=== PATIENT | female | born 1965 | race Caucasian/White ===

== ENCOUNTER 2021-09-01 10:07 | Outpatient (CLI) | payer BC | END 2021-09-01 10:08 | disposition home or self-care (01) | LOC: BICMRI 10:07 | PROVIDERS: ATTEND Nurse Practitioner Family | DX: R26.81 Unsteadiness on feet (principal); R25.1 Tremor, unspecified; M25.50 Pain in unspecified joint; G89.4 Chronic pain syndrome; M62.838 Other muscle spasm; R53.1 Weakness; R29.6 Repeated falls; R90.82 White matter disease, unspecified; Z67.91 Unspecified blood type, Rh negative | CPT/HCPCS: 70551 ==

== ENCOUNTER 2022-03-21 18:46 | Emergency (ER) | payer BC ==
[2022-03-21] MEDS ORDERED: Fentanyl 100 MCG/2 ML VIAL ONE ×2 (19:25→21:43)
== END 2022-03-21 22:31 | disposition home or self-care (01) ==
LOC: ERS 18:46
DX: S52.502A Unspecified fracture of the lower end of left radius, initial encounter for closed fracture (principal); R55 Syncope and collapse; W19.XXXA Unspecified fall, initial encounter
CPT/HCPCS: 72125; 93005; 96374; 96376; J3010

== ENCOUNTER 2022-10-24 10:16 | Outpatient (CLI) | payer BC ==
[~2022-10-24 10:16] MED LIST: Magnevist 469MG/ML 20 ML VIAL ONE
== END 2022-10-24 10:17 | disposition home or self-care (01) ==
LOC: MRI 10:16
PROVIDERS: ATTEND Psychiatry & Neurology Neurology
DX: G37.9 Demyelinating disease of central nervous system, unspecified (principal); M47.812 Spondylosis without myelopathy or radiculopathy, cervical region; M48.02 Spinal stenosis, cervical region; R90.82 White matter disease, unspecified; M50.31 Other cervical disc degeneration, high cervical region; M50.321 Other cervical disc degeneration at C4-C5 level; M50.322 Other cervical disc degeneration at C5-C6 level; M50.323 Other cervical disc degeneration at C6-C7 level
CPT/HCPCS: 70553; 72156

== ENCOUNTER 2023-09-07 12:57 | Outpatient (CLI) | payer BC ==
[2023-09-07 14:17] LABS: Hematocrit 38.9 % (34.9-44.5); Mean Corpuscular HGB CONC 33.4 g/dL (32.0-36.0); Mean Corpuscular Hemoglobin 32.8 pg (27.0-33.0); Mean Corpuscular Volume 98.2 fL (81.6-98.3); Mean Platelet Volume 11.3 fL (7.4-10.4); Platelet Count 247 10x3/uL (150-450); RBC Distribution Width 13.4 % (11.5-14.5); Red Blood Cell (RBC) Count 3.96 10x6/uL (3.90-5.03); White Blood Cell (WBC) Count 5.2 10x3/uL (3.5-10.5)
[2023-09-07 14:38] LABS: PTT 21.9 sec (22.0-33.0); Prothrombin Time 10.6 sec (9.5-12.1)
== END 2023-09-07 12:58 | disposition home or self-care (01) ==
LOC: LABBT 12:57
PROVIDERS: ATTEND Neurological Surgery
DX: Z01.812 Encounter for preprocedural laboratory examination (principal); M50.021 Cervical disc disorder at C4-C5 level with myelopathy; M50.022 Cervical disc disorder at C5-C6 level with myelopathy; M50.023 Cervical disc disorder at C6-C7 level with myelopathy
CPT/HCPCS: 85027; 85610; 85730